=== PATIENT | male | born 1955 | race African-American/Black ===

== ENCOUNTER 2024-07-13 10:03 | Inpatient (IN) | payer MEDICARE, OTHER ==
[~2024-07-13] VITALS: Ht 172.7 cm; Wt 89.8 kg
[2024-07-13] VITALS (11 sets, daily range): BP systolic 116–181; BP diastolic 59–98; TEMP 97.5–98.8; O2SAT 87–100
[2024-07-13 10:33] LABS: BASOPHILS % (AUTO) 0.3 % (0.0-2.0); EOSINOPHILS # (AUTO) 0.3 K/uL (0.0-0.7); EOSINOPHILS % (AUTO) 3.8 % (0.0-6.0); HEMATOCRIT 36 % (39-51); HEMOGLOBIN 11.8 g/dL (13.5-17.5); LYMPHOCYTES # (AUTO) 0.8 K/uL (0.8-4.8); LYMPHOCYTES % (AUTO) 9.3 % (20.0-44.0); MEAN CORPUSCULAR HEMOGLOBIN 30 PG (26.0-33.0); MEAN CORPUSCULAR HGB CONC 33 g/dl (31.0-36.0); MEAN CORPUSCULAR VOLUME 93 fL (80-96); MONOCYTES # (AUTO) 0.6 K/uL (0.1-1.30); MONOCYTES % (AUTO) 6.9 % (2.0-12.0); NEUTROPHILS # (AUTO) 7.2 K/uL (1.8-8.9); NEUTROPHILS % (AUTO) 79.7 % (43.0-81.0); PLATELET COUNT (AUTO) 247 K/uL (150-450); RED BLOOD CELL COUNT(AUTO) 3.87 MIL/uL (4.5-6.0); WHITE BLOOD COUNT (AUTO) 9.1 K/uL (4.3-11.0)
[2024-07-13 11:22] LABS: CALCIUM, SERUM 9.5 mg/dL (8.5-10.1); CARBON DIOXIDE 25 mmol/L (21-32); CHLORIDE 103 mmol/L (98-107); GLUCOSE 186 mg/dL (74-106); POTASSIUM 5.3 mmol/L (3.5-5.1); SODIUM SERUM 141 mmol/L (136-145); UREA NITROGEN, BLOOD 45 mg/dL (7-18)
[2024-07-13 11:25] LABS: CREATININE 7.9 mg/dL (0.6-1.3)
[2024-07-13] MEDS: SODIUM ZIRCONIUM CYCLOSILICATE 10 GM POWD.PACK PO ONE (12:06)
[2024-07-13] MEDS ORDERED: Z GUARD REMEDY 4 OZ OINT TP PRN (13:00)
[2024-07-13] MEDS ORDERED: ONDANSETRON HCL/PF 4 MG/2 ML VIAL IVP PRN (13:00)
[2024-07-13] MEDS ORDERED: MAGNESIUM HYDROXIDE 30 ML UDC PO PRN (13:00)
[2024-07-13] MEDS ORDERED: ZOLPIDEM TARTRATE 5 MG TABLET PO PRN (13:00)
[2024-07-13] MEDS ORDERED: MAG HYDROX/AL HYDROX/SIMETH 30 ML UDC PO PRN (13:00)
[2024-07-13] MEDS ORDERED: ACETAMINOPHEN 325 MG TABLET PO PRN (13:00)
[2024-07-13] MEDS ORDERED: HYDR-4077 PO (13:26)
[2024-07-13] MEDS ORDERED: BISA5TAB10 PO (13:26)
[2024-07-13] MEDS ORDERED: [UNRECOGNIZED DRUG - CODE] TP (13:26)
[2024-07-13] MEDS ORDERED: ACET-73 PO (13:26)
[2024-07-13] MEDS ORDERED: LIDO30AD10 TP (13:26)
[2024-07-13] MEDS ORDERED: FERR325T23 PO (13:26)
[2024-07-13] MEDS ORDERED: TAMS-12 PO (13:26)
[2024-07-13] MEDS ORDERED: FOLI0.8T3 PO (13:26)
[2024-07-13] MEDS ORDERED: INSU100V3 SQ (13:26)
[2024-07-13] MEDS ORDERED: BISA10SU11 RC (13:26)
[2024-07-13] MEDS ORDERED: METO-357 PO (13:26)
[2024-07-13] MEDS ORDERED: GABA300C PO (13:26)
[2024-07-13] MEDS: HALOPERIDOL LACTATE INJ 5 MG/ML VIAL IM STA (17:12)
[2024-07-14] VITALS (14 sets, daily range): BP systolic 87–142; BP diastolic 49–94; TEMP 97–98.2; O2SAT 94–100
[2024-07-14] MEDS ORDERED: DEXTROSE 50%-WATER 50 ML DISP.SYRIN IV PRN
[2024-07-14 05:21] LABS: BASOPHILS % (AUTO) 0.3 % (0.0-2.0); EOSINOPHILS # (AUTO) 0.4 K/uL (0.0-0.7); EOSINOPHILS % (AUTO) 4.8 % (0.0-6.0); HEMATOCRIT 34 % (39-51); HEMOGLOBIN 11.1 g/dL (13.5-17.5); LYMPHOCYTES # (AUTO) 0.8 K/uL (0.8-4.8); LYMPHOCYTES % (AUTO) 11.2 % (20.0-44.0); MEAN CORPUSCULAR HEMOGLOBIN 31 PG (26.0-33.0); MEAN CORPUSCULAR HGB CONC 33 g/dl (31.0-36.0); MEAN CORPUSCULAR VOLUME 92 fL (80-96); MONOCYTES # (AUTO) 0.5 K/uL (0.1-1.30); MONOCYTES % (AUTO) 6.6 % (2.0-12.0); NEUTROPHILS # (AUTO) 5.8 K/uL (1.8-8.9); NEUTROPHILS % (AUTO) 77.1 % (43.0-81.0); PLATELET COUNT (AUTO) 226 K/uL (150-450); RED BLOOD CELL COUNT(AUTO) 3.63 MIL/uL (4.5-6.0); RED CELL DISTRIBUTION WIDTH 14.6 % (11.5-15.0); WHITE BLOOD COUNT (AUTO) 7.5 K/uL (4.3-11.0)
[2024-07-14 05:31] LABS: CALCIUM, SERUM 9.1 mg/dL (8.5-10.1); CREATININE 5.7 mg/dL (0.6-1.3); PHOSPHORUS 4.1 mg/dL (2.5-4.9); POTASSIUM 3.8 mmol/L (3.5-5.1)
[2024-07-14] MEDS: BLOOD SUGAR DIAGNOSTIC 1 EACH STRIP VI SCH (07:40)
[2024-07-14] MEDS: INSULIN REGULAR, HUMAN 100 UNIT/ML 3 ML VIAL SQ PRN (11:33)
[2024-07-14] MEDS: TAMSULOSIN 0.4 MG CAP.SR.24H PO SCH (21:37)
[2024-07-14] MEDS: *INSULIN REGULAR(HUMULIN R)HUM 100 UNIT/ML VIAL SQ PRN (21:48)
[2024-07-15] VITALS: BP 112/79; TEMP 98.1; O2SAT 100
[2024-07-15 04:00] VITALS: BP 133/88; TEMP 98.1; O2SAT 100
[2024-07-15 06:06] LABS: HEPATITIS B SURFACE AB Non Reactive (.)
[2024-07-15 08:00] VITALS: BP 118/74; TEMP 98.1; O2SAT 96
[2024-07-15] MEDS: ALBUMIN 25% 25 GM in PREMIX 1 EA IV PRN (13:18)
[2024-07-15 16:00] VITALS: BP 122/71; TEMP 98.1; O2SAT 95
== END 2024-07-15 19:14 | DRG 312 ==
LOC: ER 10:13 → TELE 12:14 → ICU 17:33 → MED 07-14 10:42 → TELE 07-14 11:09
PROVIDERS: ADMIT Internal Medicine; ATTEND Internal Medicine
PROC: 5A1D70Z Performance of Urinary Filtration, Intermittent, Less than 6 Hours Per Day (ICD-10-PCS; principal; 2024-07-13)
DX: R55 Syncope and collapse (principal); N18.6 End stage renal disease; G93.41 Metabolic encephalopathy; I12.0 Hypertensive chronic kidney disease with stage 5 chronic kidney disease or end stage renal disease; D63.8 Anemia in other chronic diseases classified elsewhere; W01.0XXA Fall on same level from slipping, tripping and stumbling without subsequent striking against object, initial encounter; Z99.2 Dependence on renal dialysis; E11.22 Type 2 diabetes mellitus with diabetic chronic kidney disease; E87.5 Hyperkalemia; G47.00 Insomnia, unspecified; R00.0 Tachycardia, unspecified; Y93.9 Activity, unspecified; Y92.89 Other specified places as the place of occurrence of the external cause
CPT/HCPCS: 36415; 71045-TC; 80048-TC; 82962-TC; 83735-TC; 84100-TC; 84484-TC; 85025-TC; 86706; 87340; 90935-TC; 93307-TC; 93880-TC; 97110-TC; 97530-TC; 97535-TC; A4216; G0378; J1630; J1815; J7030; P9047